=== PATIENT | male | born 1960 | race Caucasian/White ===

== ENCOUNTER → 2016-08-29 | Outpatient (CLI) | payer OTHER ==
[~2016-08-29] MED LIST: LISI10TA4 PO; NEXI20CA PO; ZYLO300T4 PO
--- NOTE | 2016-08-31 07:34 | SLEEPCENT ---
DATE OF PROCEDURE: 08/29/2016 ORDERED BY: PATIENCE Martinez Nocturnal polysomnography was performed for evaluation of sleep apnea syndrome symptoms. 7 hours and 25 minutes of data were reviewed. There were 247 minutes of sleep identified. Sleep latency was prolonged at 93 minutes. Rapid eye movement (REM) latency was prolonged at 219 minutes. Sleep architecture showed severe fragmentation. There was two brief REM periods appreciated. Overall sleep efficiency was 56.9%. Electrocardiogram (EKG) showed a sinus rhythm with an average heart rate of 60 beats per minute. Electroencephalogram (EEG) showed normal waveforms for awake and sleep. There were 188 respiratory events identified of 10 seconds in duration or greater for an apnea hypopnea index of 45.6. The events were primarily obstructive, not exclusive to sleep stage nor body posture. Arousals from respiratory events occurred 39 times per hour. Oxygen desaturations were seen into the low 80s. There was minimal limb activity and remaining of measures of sleep physiology were normal. IMPRESSION: Severe obstructive sleep apnea syndrome (G47.33). Apnea hypopnea index 45.6. RECOMMENDATION: The patient should be encouraged to return to the sleep disorder center for pressure therapy. In the interim, alcohol and sedative avoidance should be practiced and caution exercised during the operation of motor vehicles.
== END ==
LOC: M SLEEP 19:35
PROVIDERS: ATTEND Nurse Practitioner Adult Health
DX: G47.33 Obstructive sleep apnea (adult) (pediatric) (principal)

== ENCOUNTER → 2016-09-27 | Outpatient (CLI) | payer OTHER | LOC: M SLEEP 19:22 | PROVIDERS: ATTEND Nurse Practitioner Adult Health | DX: G47.33 Obstructive sleep apnea (adult) (pediatric) (principal) ==